=== PATIENT | female | born 1970 | race Caucasian/White ===

== ENCOUNTER → 2025-01-12 08:35 | Outpatient (REF) | payer BC, SELFPAY | LOC: RAD 08:35 | PROVIDERS: ATTENDING PHYSICIAN Internal Medicine Endocrinology, Diabetes & Metabolism; FAMILY PHYSICIAN Physician Assistant | DX: E21.0 Primary hyperparathyroidism (principal) | CPT/HCPCS: 78071; A9500 ==

== ENCOUNTER 2025-05-02 06:14 | Day surgery (SDC) | payer BC, SELFPAY ==
[2025-04-19 09:06] LABS: Hematocrit 38.8 % (37.0-47.0); Hemoglobin 13.0 g/dL (12.0-16.0); Mean Corp Hgb Conc. 33.5 g/dL (33.0-37.0); Mean Corpuscular Volume 83.6 fL (81.0-99.0); Platelet Count 280 10^3/uL (130-400); Red Cell Dist. Width 12.9 % (11.5-14.5)
[2025-04-19 09:18] LABS: INR 0.79; PT 11.5 Sec (11.4-14.6)
[2025-04-19 09:19] LABS: APTT 31.8 Sec (23.4-35.0)
[2025-04-19 10:20] LABS: ALT (SGPT) 32 U/L (0-35); AST (SGOT) 29 U/L (14-36); Albumin 4.6 g/dl (3.5-5.0); Alkaline Phosphatase 91 U/L (38-126); Blood Urea Nitrogen 16 mg/dl (7-17); Calcium 10.9 mg/dl (8.4-10.2); Carbon Dioxide 25 mmol/L (22-30); Chloride 105 mmol/L (98-107); Glucose 183 mg/dl (70-99); Potassium 4.6 mmol/L (3.5-5.1); Sodium 138 mmol/L (135-145); Total Protein 6.9 g/dl (6.3-8.2); eGFR > 60.00
[2025-04-19 13:57] VITALS: BMI 43.7
[2025-05-02] VITALS (17 sets, daily range): BP systolic 82–171; BP diastolic 47–86; BMI 43.7
[2025-05-02] MEDS: NORMOSOL-R/PLASMALYTE-A 1000 IV (09:50)
[2025-05-02 09:55] LABS: Glucose - Point of Care 296 mg/dl (70-99)
[2025-05-02] MEDS: TYLENOL 1000 MG PO (10:08)
[2025-05-02] MEDS: NEURONTIN 300 MG PO (10:08)
[2025-05-02] MEDS: HEPARIN 5000 UNITS SC (10:08)
[2025-05-02] MEDS: NOVOLOG vial 6 UNITS SC (10:27)
[2025-05-02 11:38] LABS: Turbo PTH 544.0 pg/ml (13.6-85.8)
[2025-05-02 12:23] LABS: Turbo PTH 25.1 pg/ml (13.6-85.8)
[2025-05-02 13:03] LABS: Glucose - Point of Care 257 mg/dl (70-99)
[2025-05-02] MEDS: NOVOLOG vial 4 UNITS SC ×2 (13:14→15:24)
[2025-05-02] MEDS: SUBLIMAZE 50 MCG IV (13:27)
[2025-05-02] MEDS: DILAUDID 0.25 MG IV (15:20)
[2025-05-02 15:24] LABS: Glucose - Point of Care 252 mg/dl (70-99)
[2025-05-02] MEDS: TYLENOL 650 MG PO (15:59)
--- NOTE | 2025-05-02 18:44 | OR.RPT ---
Operative Report
Operative Report
Date of : 1970
Date of Operation: May 02, 2025
Preoperative Diagnosis: Thyroid Nodule Single - E041
Hyperparathyroidism - E210
Postoperative Diagnosis: Same
Surgeon: Parvez Leal M.D.
Operation: Neck exploration, left superior and right inferior parathyroidectomy � 28764
Right thyroidectomy and right level paratracheal neck dissection � 87982
Autotransplant of the right superior parathyroid gland - [id number]
Anesthesia: GET
Estimated Blood Loss: 5 cc
Drains: None
Specimen: Right inferior and left superior parathyroid glands, right thyroid lobe with isthmus, and right level paratracheal tissue.
Complications: None
Procedure:
The patient was taken to the operating room and placed in the usual supine position. After adequate general endotracheal anesthesia was established, the patient's neck was extended, prepped, and draped in the typical sterile fashion. A 5 cm
transcervical incision was made two fingerbreadths above the sternal notch. The skin incision was made with the #15 blade, and this was taken through the skin into the subcutaneous tissue. The underlying platysma muscle was divided, and subplatysmal
flaps were created superiorly to the thyroid cartilage and inferiorly to the sternal notch. Strap muscles were identified and at the midline.
The attention was turned to the left side of the neck. The left thyroid lobe was mobilized medially. During this process, the left recurrent laryngeal nerve was identified and preserved throughout the surgery. The left upper neck nodule was
identified and noted to be enlarged, excised, and sent to the pathology department, which showed a hypercellular parathyroid gland.
Next, attention was turned to the patient's right side of the neck. The right thyroid lobe was mobilized medially. During this process, the right recurrent laryngeal nerve was identified and preserved throughout the surgery. The right lower neck
nodule was identified and noted to be enlarged, excised, and sent to the pathology department. The intraoperative PTH levels normalized.
The right thyroid lobe was further mobilized off the trachea, transected at the left of the isthmus, and sent to the pathology department.
At this time, the right neck dissection was performed. The tissue between the right carotid artery to the trachea into the anterior mediastinum was carefully dissected. The previously identified recurrent laryngeal nerve was preserved. The tissue
was removed and sent to the pathology department. We identified a normal apperaring right superior parathyroid gland on the right thyroid lobe; therefore, a decision was made to autotransplant it. The gland was removed, minced with a #10 blade, and
then autotransplanted into the right SCM muscle.
After obtaining adequate hemostasis, the strap muscles were reapproximated with #3-0 Vicryl in a running fashion. The platysma muscle was reapproximated with #3-0 Vicryl in an interrupted fashion, and the skin was approximated with #4-0 Monocryl in
a running subcuticular fashion. The Steri-Strips and sterile dressings were placed. The patient tolerated the procedure well. The final instrument, needle, and sponge counts were correct. The patient was extubated and transferred to the PACU.
== END 2025-05-02 16:40 | disposition home or self-care (01) ==
LOC: SDS 06:14
PROVIDERS: ATTENDING PHYSICIAN Surgery; FAMILY PHYSICIAN Physician Assistant
DX: C73 Malignant neoplasm of thyroid gland (principal); E21.0 Primary hyperparathyroidism
CPT/HCPCS: 60500; 36415; 80053; 82962; 83970; 85027; 85610; 85730; 88305; 88307; 88311; 88331; 93005

== ENCOUNTER → 2025-07-17 07:50 | Outpatient (REF) | payer BC, SELFPAY | LOC: EMG 07:50 | PROVIDERS: ATTENDING PHYSICIAN Physician Assistant | DX: G62.9 Polyneuropathy, unspecified (principal); G56.03 Carpal tunnel syndrome, bilateral upper limbs; R20.2 Paresthesia of skin; D62 Acute posthemorrhagic anemia; R20.0 Anesthesia of skin | CPT/HCPCS: 95886; 95911 ==

== ENCOUNTER → 2025-07-17 08:32 | Outpatient (REF) | payer BC, SELFPAY | LOC: RAD 08:32 | PROVIDERS: ATTENDING PHYSICIAN Physician Assistant | DX: M79.641 Pain in right hand (principal); M79.642 Pain in left hand | CPT/HCPCS: 73130 ==